=== PATIENT | female | born 1990 | race African-American/Black ===

== ENCOUNTER 2016-04-30 11:40 | Emergency (ER) | payer MEDICAID ==
[2014-05-17 05:52] VITALS: BMI 41.8
[~2016-04-30 11:40] MED LIST: FERROUS SULFAT325 MG PO; IBUPROFEN600 MG PO; PERCOCET 5-3251 TAB PO; PRENATAL COMPLE1 TAB PO
[2016-04-30 12:23] LABS: BASOPHILS 0 % (0.0-2.0); EOSINOPHILS 3.2 % (0-7); HEMATOCRIT 36.5 % (36.0-48.0); HEMOGLOBIN 11.7 g/dL (12-16); IMMATURE GRANULOCYTES 0.2 % (0-5); LYMPHOCYTES 30.4 % (15-50); MCH 24.2 pg (26.0-34.0); MCHC 32.1 g/dL (31.0-37.0); MCV 75.4 fL (80.0-100.0); MEAN PLATELET VOLUME 9.3 fL (7.4-10.4); MONOCYTES 11.3 % (2-11); NEUTROPHILS 54.9 % (40-80); RBC 4.84 10x6/uL (4.00-5.40); RDW 15.9 % (11.5-14.5)
[2016-04-30 12:33] LABS: ALKALINE PHOSPHATASE 57 U/L (46-116); ALT (SGPT) 24 U/L (10-68); CALC OSMOLALITY 271 mosm/kg (275-300); CALCIUM 9.3 mg/dL (8.5-10.1); CARBON DIOXIDE 25.4 mmol/L (21.0-32.0); CHLORIDE - SERUM 103 mmol/L (98-107); CREATININE - SERUM 0.7 mg/dL (0.6-1.3); GLUCOSE 100 mg/dL (74-106); PLATELET COUNT 300 10x3/uL (130-400); POTASSIUM - SERUM 3.5 mmol/L (3.5-5.1); PROTEIN - SERUM 7.3 g/dL (6.4-8.2); SODIUM 137 mmol/L (136-145); UREA NITROGEN 7 mg/dL (7-18); eGFR NON AFRICAN AMERICAN > 90 mL/min (90-120)
[2016-04-30 12:34] LABS: APPEARANCE CLEAR (CLEAR); BILIRUBIN NEGATIVE (NEGATIVE); COLOR DK YELLOW (YELLOW); GLUCOSE NEGATIVE (NEGATIVE); KETONE LARGE mg/dL (NEGATIVE); LEUKOCYTE ESTERASE NEGATIVE (NEGATIVE); NITRITE NEGATIVE (NEGATIVE); PROTEIN NEGATIVE (NEGATIVE); SPECIFIC GRAVITY 1.025 (1.005-1.020); UROBILINOGEN NORMAL (NORMAL)
[2016-04-30 12:55] LABS: HCG - QUANTITATIVE (MATERNAL) 193183 mIU/mL
== END 2016-04-30 13:36 | disposition home or self-care (01) ==
LOC: D.ER 11:40
PROVIDERS: Emergency Medicine
DX: R11.10 Vomiting, unspecified (principal); D64.9 Anemia, unspecified

== ENCOUNTER → 2016-09-17 08:17 | Outpatient (CLI) | payer MEDICAID ==
[2014-05-17 05:52] VITALS: BMI 41.8
== END | disposition home or self-care (01) ==
LOC: D.US 08:17
DX: O21.9 Vomiting of pregnancy, unspecified (principal); Z3A.30 30 weeks gestation of pregnancy; R63.4 Abnormal weight loss

== ENCOUNTER → 2016-11-21 12:04 | Outpatient (CLI) | payer MEDICAID ==
[2014-05-17 05:52] VITALS: BMI 41.8
[2016-11-21 13:14] LABS: APPEARANCE CLOUDY (CLEAR); BILIRUBIN NEGATIVE (NEGATIVE); COLOR YELLOW (YELLOW); GLUCOSE NEGATIVE (NEGATIVE); KETONE NEGATIVE (NEGATIVE); LEUKOCYTE ESTERASE TRACE (NEGATIVE); NITRITE NEGATIVE (NEGATIVE); PROTEIN NEGATIVE (NEGATIVE); SPECIFIC GRAVITY 1.015 (1.005-1.020); UROBILINOGEN NORMAL (NORMAL)
[2016-11-21 13:18] LABS: BACTERIA MODERATE /hpf (NONE SEEN); CALCIUM OXALATE CRYSTALS 0-5 /hpf (NONE SEEN); MUCUS <1+ /lpf (NONE SEEN); RED CELLS - URINE 0-5 /hpf (0-5); WHITE CELLS - URINE 0-5 /hpf (0-5)
== END | disposition home or self-care (01) ==
LOC: D.LDO 12:04
PROVIDERS: Obstetrics & Gynecology
DX: O46.93 Antepartum hemorrhage, unspecified, third trimester (principal); Z3A.39 39 weeks gestation of pregnancy

== ENCOUNTER → 2016-11-23 15:49 | Outpatient (CLI) | payer MEDICAID ==
[2014-05-17 05:52] VITALS: BMI 41.8
== END | disposition home or self-care (01) ==
LOC: D.LDO 15:49
DX: Z34.83 Encounter for supervision of other normal pregnancy, third trimester (principal); Z3A.40 40 weeks gestation of pregnancy

== ENCOUNTER 2016-11-25 05:00 | Inpatient (IN) | payer MEDICAID ==
[2016-11-25] VITALS (8 sets, daily range): BP systolic 105–132; BP diastolic 56–82; Ht 162.6 cm; Wt 115.2 kg
[~2016-11-25] VITALS: Ht 162.6 cm; Wt 115.2 kg
[2016-11-25 05:50] LABS: HEMATOCRIT 32.8 % (36.0-48.0); HEMOGLOBIN 10.4 g/dL (12-16); MCH 24.1 pg (26.0-34.0); MCHC 31.7 g/dL (31.0-37.0); MCV 76.1 fL (80.0-100.0); RBC 4.31 10x6/uL (4.00-5.40); RDW 14.4 % (11.5-14.5); WBC 5.4 10x3/uL (4.8-10.8)
--- NOTE | 2016-11-25 06:01 | NUR ---
RN TO PT BS FOR ROUNDS. PT RESTING IN BED IN LEFT LATERAL POSITION, WITH EYES CLOSED, IN NO ACUTE DISTRESS. RESPIRATIONS EVEN AND UNLABORED. BED IN LOW POSITION, SIDE RAILS UP TIMES 2, CALL LIGHT AND PHONE IN REACH. FRIEND REMAINS AT PT BS FOR SUPPORT AND ASSISTANCE. WILL CONT TO MONITOR PT STATUS.
[2016-11-25 06:07] LABS: APPEARANCE HAZY (CLEAR); BILIRUBIN NEGATIVE (NEGATIVE); COLOR YELLOW (YELLOW); GLUCOSE NEGATIVE (NEGATIVE); KETONE NEGATIVE (NEGATIVE); LEUKOCYTE ESTERASE TRACE (NEGATIVE); NITRITE NEGATIVE (NEGATIVE); PROTEIN NEGATIVE (NEGATIVE); SPECIFIC GRAVITY 1.015 (1.005-1.020); UROBILINOGEN NORMAL (NORMAL)
[2016-11-25 06:08] LABS: BACTERIA MANY /hpf (NONE SEEN); RED CELLS - URINE 0-5 /hpf (0-5); WHITE CELLS - URINE 0-5 /hpf (0-5)
--- NOTE | 2016-11-25 10:41 | NUR ---
BABY BORN AT 1040
--- NOTE | 2016-11-25 10:44 | NUR ---
NO COUNTS WERE DONE DUE TO CASE BEING CLASSIFIED STAT C SECTION
--- NOTE | 2016-11-25 12:01 | NUR ---
FUNDUS FIRM, MIDLINE AT THE UMBILICUS. LOCIA RUBRA MODERATE. REYNA PAD IN PLACE.
--- NOTE | 2016-11-25 12:17 | NUR ---
RECEIVED FROM RECOVERY ROOM. ALERT BUT FEELING DROWSY. IV PITOCIN INFUSING IN LEFT FOREARM. U/2 FIRM MIDLINE. RUBRA SMALL WITH SMALL CLOT EXPRESSED WITH GENTLE MASSAGE. VS OBTAINED. ATTEMPTED ORAL AND AXILLARY TEMPS. ORAL DID NOT REGISTER. AXILLARY 94.0. TEMPORAL DONE PER EXAMINING OFFICER AT 97.6. SIDE RAILS UP X 2. DENIES FEELING PAIN. UNABLE TO MOVE LOWER EXTREMETIES. O2 ON AT [address] AND PUMP IS ON. FOB IN ROOM. STABLE IN NURSERY. EMPTIED COLLINS OF 200 ML DARK ORANGE TINT URINE.
--- NOTE | 2016-11-25 12:25 | NUR ---
NEW IV BAG NS WITH 20 U PITOCIN HUNG AT 125 ML PER HR ON ALARIS PUMP.
--- NOTE | 2016-11-25 12:26 | NUR ---
ANESTHESIA WAS NOTIFIED OF PATIENTS CURRENT TEMPERATURE, ORDERS WERE RECEIVED FOR YOSEF ALEJANDRA BY LEATHER CLEANER.
--- NOTE | 2016-11-25 12:38 | NUR ---
YOSEF ALEJANDRA APPLIED BY INSTRUMENT CHECKER. SYED GARCIA CRNA IN ROOM/
--- NOTE | 2016-11-25 12:40 | NUR ---
PATIENTS TEMPERATURE DROPPED TO 96.7F ON HAND OFF. CONTACTED SYED GARCIA CRNA AND WAS GIVEN VERBAL ORDERS TO APPLY A RANCHO HUGGER.
--- NOTE | 2016-11-25 12:52 | NUR ---
ASSISTED TO SIT IN HIGHFOWLERS POSITION PER PT REQUEST. O2 SATS AT 99-100% O2 DC'D AT THIS TIME.
--- NOTE | 2016-11-25 13:15 | NUR ---
U/3 FIRM MIDLINE. RUBRA SMALL TO MOD. TEMP REGISTERED AT 97.3. ORAL SIPS OF WATER TAKEN. INSTRUCTED ON INCENTIVE SPIROMETER PERFORMED WITHOUT DIFF X 3. INSTRUCTED ON USE OF GEOLOGICAL SURVEY FIELD ASSISTANT. TO LET RN KNOW WHEN SHE STARTS FEELING DISCOMFORT OR PAIN. STATES "I JUST FEEL SLEEPY". DENIES PAIN. TOWEL COVERED ICE PACK IN PLACE ON LOWER ABDOMEN. SCD'S IN PLACE. VISITORS AT BEDSIDE. HOB LOWERED TO LOW FOWLERS PER PT REQUEST. SIDE RAILS UP X 2, CALL LIGHT IN REACH. INSTRUCTED PT SHE HAS CLEAR LIQUIDS ORDERED FOR DIET. ENCOURAGED TO TAKE FEW SIPS OF WATER TO START IN ORDER TO AVOID NAUSEA. VERBALIZED UNDERSTANDING.
--- NOTE | 2016-11-25 14:15 | NUR ---
TEMP 98.1 U/3 FIRM MIDLINE, RUBRA SMALL TO MOD. CLEAN REYNA-PADS X 2 PLACED. ASSISTED TO HIGH FOWLERS POSITION IN PREPARATION FOR HOLDING . DR LUNSFORD NOTIFIED OF CURRENT TEMP. ORDERS RECEIVED TO DC BEAR HUGGER. HUGGER WAS REMOVED. SIDE RAILS UP X 2, CALL LIGHT IN REACH. DENIES FEELING PAIN. ICE PACK PRESENT ON LOW ABDOMEN AND SCD'S IN PLACE. PLANS TO BREAST AND BOTTLE FEED.
--- NOTE | 2016-11-25 15:16 | NUR ---
SITTING UP IN BED. ASSISTED TO TILT TO RIGHT SIDE. INCENTIVE SPIROMETER X 3 USED. U/2 FIRM, RUBRA SMALL TO MOD. CLEAN PADS X 2 ON. INFANT AND FAMILY IN ROOM. REQUESTED JELLO. FRESH ICE PACK TO INCISION. EXTRA BLANKETS WERE REMOVED EARLIER. MOVING LOWER EXTREMETIES BUT UNABLE TO BEND A KNEES. SIDE RAILS UP X 2, CALL LIGHT IN REACH. TO CALL IF ANYTHING IS NEEDED.
--- NOTE | 2016-11-25 16:15 | NUR ---
U/3 FIRM MIDLINE, RUBRA SMALL. INFANT IN ARMS. VISITORS IN ROOM. DENIES NEEDING ANYTHING AT THIS TIME. TO CALL IF ANYTHING IS NEEDED.
--- NOTE | 2016-11-25 17:15 | NUR ---
SITTING UP IN BED. VS OBTAINED. PERICARE WITH WARM WASHCLOTH. CLEAN CHUX AND PADS ON. ASSISTED TO HIGH FOWLERS POSITION FOR CLEAR LIQUID DINNER. MOVES LE WITHOUT DIFFICULTY BUT SAYS SHE IS STILL NUMB AND CANNOT FEEL THE CATHETER. USING REGULATORY INTERN PRN FOR PAIN RELIEF. U/3 FIRM MIDLINE RUBRA SMALL. SIDE RAILS UP X2, CALL LIGHT IN REACH.
--- NOTE | 2016-11-25 18:18 | NUR ---
U/2 FIRM, AUDRA OCHOA. RATES PAIN 0/10. STATES "THAT MEDICINE MAKES ME SLEEPY". IN ROOM IN [facility]. VISITOR X 1 AT BEDSIDE. SIDE RAILS UP X 2, CALL LIGHT IN REACH. TO CALL IF ANYTHING IS NEEDED.
--- NOTE | 2016-11-25 19:30 | NUR ---
THIS RN TO BEDSIDE. PT AWAKE, BUT DROWZY. PAIN ASSESSED. PT REPORTS PAIN 0/10. SHIFT ASSESSMENT COMPLETED. SEE FLOWSHEET. PT PERFORMS I.S. X 3 ABLE TO PULL 2200. COUGHS W/POOR EFFORT, BUT IS COOPERATIVE. PERIPAD W/SMALL LOCHIA NOTED, BUT NO CHANGED AT THIS TIME DUE TO MULTIPLE GUESTS AT BESIDE. FRESH ICE CHIPS SERVED. APPROX 40ML URINE NOTED IN UROMETER. BED LOW,SIDE RAILS UP X 2. CALL LIGHT,PHONE AND LACE WEAVER BUTTON AT PT'S SIDE.
--- NOTE | 2016-11-25 20:00 | NUR ---
INFANT TRANSPORTED BACK TO PT'S ROOM VIA [facility]. ID BANDS VERIFIED PER PROTOCOL. INFANT PLACED IN PT'S ARMS. MULTPILE GUESTS REMAIN AT BEDSIDE.
--- NOTE | 2016-11-25 20:30 | NUR ---
ROUNDS MADE. PT HAS REPOSITIONED SELF UP IN BED W/ UP IN ARMS FOR FEEDING. PERIPAD CHANGED AT THIS TIME. APPROX 40ML URINE NOTED IN COLLINS UROMETER. NOTED TO BE HAVING DIFFICULTY DRINKING FROM ROUND NIPPLE. NUK NIPPLE PROVIDED. APPEARS TO BE DRINKING MORE EFFECTIVELY. PT DENIES NEEDS AT PRESENT.
--- NOTE | 2016-11-25 21:30 | NUR ---
ROUNDS MADE. PT AA&O X 4 IN LOW MATHIS'S. REPORTS PAIN 0/10. PERFORMS I.S. X 3. ABLE TO PULL 2200. PT REPOSITIONS SELF TO SITTING UP IN BED . APPROX 40ML URINE NOTED IN UROMETER. SMALL LOCHIA NOTED TO PERIPAD. PT DENIES NEEDS AT PRESENT. SIG OTHER AT BEDSIDE.
--- NOTE | 2016-11-25 22:15 | NUR ---
THIS RN TO BEDSIDE. DEMEROL COMPUTER ARTIST DISCONTINUED. IV SITE SALINE LOCKED. COLLINS CATH REMOVED INTACT W/ANOTHER 40ML URINE NOTED. PERICARE DONE. CLEAN PERIPAD PLACED. PT MEDICATED W/NORCO 10/325MG ONE. TEACHING PROVIDED. PT REPORTS PAIN 5/10 WITH MOVEMENT. FRESH ICE WATER SERVED AND A PACKAGE OF MARLENA CRACKERS SERVED. PT INSTRUCTED NOT TO GET OUT OF BED W/OUT CALLING OUT FOR ASSISTANCE. PT IS AGREEABLE. BILATERAL SCD WRAPS REMAIN IN PLACE. STILL CONNECTED TO PUMP. PUMP REMAINS ON.
--- NOTE | 2016-11-25 23:00 | NUR ---
ROUNDS MADE. PT SITTING UP IN BED W/INFANT UP IN ARMS FOR FEEDING. PT DENIES NEEDS AT PRESENT. REPORTS PAIN ONLY PRESENT WITH MOVEMENT. SIG OTHER REMAINS AT BEDSIDE.
--- NOTE | 2016-11-25 23:27 | OP ---
PATIENT NAME: ANGEL THOMAS MEDICAL RECORD: [id number] :92 LOCATION:[id number] ADMISSION DATE:11/25/16 SURGEON: REINA SILVESTRE MD DATE OF OPERATION: 11/25/2016 PREOPERATIVE DIAGNOSIS: Nonreassuring trace. POSTOPERATIVE DIAGNOSIS: Nonreassuring trace. PROCEDURE: Primary low transverse section. ANESTHESIA: Epidural. SURGEON: Reina Silvestre MD FINDINGS: A 6 pound 13 ounce male infant with 8 and 9 Apgars in cephalic presentation with tight nuchal cord. ESTIMATED BLOOD LOSS: 800 cc. COMPLICATIONS OF SURGERY: None. OPERATIVE NOTE: The patient was taken to the OR and under adequate epidural anesthesia, already on board. She was prepped and draped in the usual manner for abdominal procedures. A transverse incision was made in the lower abdomen and extended in a Pfannenstiel manner through subcutaneous tissue, fascia, dividing muscles in the midline. Peritoneum was then elevated and incised and this incision extended from the symphysis pubis to within 4 cm of the umbilicus, avoiding the bladder and abdominal organs. A transverse incision was then made in the lower uterine segment and infant was delivered through the uteroabdominal incision without difficulty from a cephalic presentation. A tight nuchal cord with poor matrix was found. The placenta was removed manually after suctioning and drying the . was taken to the nursery for further evaluation. The placenta was removed manually. The uterus was then closed in two layers, first layer running interlocking #1 chromic and second layer an imbricating #1 chromic. Pelvis was copiously irrigated and suctioned and hemostasis confirmed. The fascial layer was then closed in a running noninterlocking #1 PDS loop suture. Skin incision closed in 2 layers, first layer running noninterlocking 2-0 plain gut suture, followed by a subcuticular 2-0 plain gut suture. Dermabond was applied. A Steri-Strip dressing was applied and the patient went to the recovery area in good condition. It was assumed that sponge count was correct; however, in view of the lack of counts prior to opening the abdomen, an x-ray was obtained to confirm no lost laps. TRANSINT:[id number] Voice Confirmation ID: [id number] DOCUMENT ID: [id number] REINA SILVESTRE MD at 2327 CC: [id number] DICTATION DATE: 11/25/16 1159 LOAN CLERK: 11/25/16 1557 ADM IN [place] [id number] [place] [address]
--- NOTE | 2016-11-26 00:37 | NUR ---
ROUNDS MADE. PT LYING AWAKE IN BED W/INFANT UP IN ARMS. PT'S PAIN AND NEEDS ASSESSED. PT REPORTS PAIN 0/10 UNTIL SHE MOVES. DENIES NEEDS AT THIS TIME. BED LOW,CALL LIGHT AND PHONE AT PT'S SIDE. SCD WRAPS REMAIN ON BILATERALLY.STILL CONNECTED TO PUMP. PUMP IS ON AND FUNCTIONING. SIG OTHER REMAINS AT BEDSIDE.
--- NOTE | 2016-11-26 02:00 | NUR ---
ROUNDS MADE. PT LYING AWAKE IN BED. PT QUESTIONED IF SHE FEELS THE URGE TO VOID YET. PT REPORTS SHE DOES. SCD WRAPS REMOVED. PT TO SITTING ON SIDE OF BED PER SELF. AFTER SEVERAL MINUTES. PT CONTINUES TO DENY FEELING DIZZY. PT TO STANDING AT SIDE OF BED. STILL DENIES DIZZINESS. PT AMBULATES W/OUT ASSISTANCE TO BR. ABLE TO VOID 200ML URINE IN NUNS CAP. WARM WASH CLOTHS PROVIDED FOR PT TO PERFORM SELF PERICARE. CLEAN PADS AND PANTIES PROVIDED. CLEAN CHUX PLACED ON BED. PT AMBULATES BACK TO BED W/OUT ASSISTACNCE. PAIN ASSESED. PT DENIES PAIN W/AMBULATING, BUT NOW C/O ABLE CRAMPING AND INCISIONAL PAIN THAT SHE RATES 5/10.
--- NOTE | 2016-11-26 02:15 | NUR ---
PT MEDICATED W/NORCO 10/325MG ONE TAB AND MOTRIN 600MG PO. FRESH ICE WATER SERVED. BLANKET AND PILLOW PROVIDED FOR SIG OTHER. PT DENIES FURTHER NEEDS AT THIS TIME. SCD WRAPS PLACED BACK ON PT BILATERALLY. CONNECTED TO PUMP. PUMP IS ON AND FUNCTIONING. PT INSTRUCTED THAT 2 MORE VOIDS WILL NEED TO BE RECORDED. PT INSTRUCTED TO CALL OUT IF SHE NEEDS ASSISTANCE W/GETTING OUT OF OR BACK IN BED. PT VERBALIZES UNDERSTANDING. BED LOW, SIDE RAILS UPX 2. CALL LIGHT AND PHONE AT PT'S SIDE.
--- NOTE | 2016-11-26 02:50 | NUR ---
PT WAKENED TO INFORM HER THAT INFANT IS BEING TRANSPORTED BACK TO [facility] AT THIS TIME PER [facility] NURSES REQUEST. PT DENIES PAIN OR NEEDS AT PRESENT.
--- NOTE | 2016-11-26 04:00 | NUR ---
ROUNDS MADE. PT RESTING QUIETLY IN LOW MATHIS'S WITH EYES CLOSED. RESP EVEN AND UNLABORED. PT LEFT UNDISTURBED AT THIS TIME TO ALLOW FOR REST.
--- NOTE | 2016-11-26 06:09 | NUR ---
ROUNDS MADE. PT RESTING WITH EYES CLOSED IN LOW MATHIS'S. RESP EVEN AND AUDIBLE. PT LEFT UNDISTURBED AT THIS TIME.
[2016-11-26 06:13] LABS: RAPID PLASMA REAGIN Non Reactive (Non Reactive)
[2016-11-26 06:29] LABS: HEMATOCRIT 28.1 % (36.0-48.0); HEMOGLOBIN 8.9 g/dL (12-16); MCH 24.3 pg (26.0-34.0); MCHC 31.7 g/dL (31.0-37.0); MCV 76.6 fL (80.0-100.0); MEAN PLATELET VOLUME 10.4 fL (7.4-10.4); RBC 3.67 10x6/uL (4.00-5.40); RDW 14.6 % (11.5-14.5)
[2016-11-26 06:41] LABS: WBC 8.5 10x3/uL (4.8-10.8)
--- NOTE | 2016-11-26 07:50 | NUR ---
DR. SILVESTRE IN ROOM SPEAKING WITH PT.
--- NOTE | 2016-11-26 09:15 | NUR ---
Bettye Sara 11/26/16 LE@ 8:15 O: Patient sleeping in room did not wake upon entering. Left handouts and note in room stating, "Hi, I came in the room while you were sleeping, I didn't want to wake you. I provided handouts on several different things that will help with . Please call me as needed, if you have any questions or need help with . Congratulations on your lashon new baby:. Stacey Stack, ALEX [phone], work cell. Stacey Stack, CLC
[2016-11-26 09:50] VITALS: BP 127/62
--- NOTE | 2016-11-26 10:15 | NUR ---
PT TAKES SHOWER AT THIS TIME.
--- NOTE | 2016-11-26 10:15 | NUR ---
PT REQUESTS TO GET UP TO THE BATHROOM, ASSISTED PT UP TO BR, AMB, GAIT STEADY AND SLOW. PT VOIDS 700 CC'S IN [place] HAT. PERICARE DONE WITH WARM WET WASHCLOTHS. PT REQUESTS TO TAKE A SHOWER. SL DC'D TO LEFT FOREARM, CATH INTACT. LINENS, PERIPADS/PANTIES, SHAMPOO PROVIDED FOR PT. PT STATES SHE WILL WEAR OWN CLOHTING. BED LINENS CHANGED.
--- NOTE | 2016-11-26 10:30 | NUR ---
PT BACK TO BED, INFANT REMAINS IN ROOM WITH FOB. SR UP X2, CALL LIGHT AND PHONE WITHIN REACH. PT DENIES OTHER NEEDS AT THIS TIME.
--- NOTE | 2016-11-26 11:45 | NUR ---
PT AMBULATORY IN HALLWAY. SMILING, PT REQUESTS PAIN MEDICATION. BACK TO ROOM, TO BED. SEE EMAR FOR MED ADM. FRESH MUG OF ICE WATER SERVED TO PT. SR UP X2, CALL LIGHT AND PHONE WITHIN REACH. PT DENIES OTHER NEEDS.
[2016-11-26 16:00] VITALS: BP 120/70
--- NOTE | 2016-11-26 16:00 | NUR ---
PT AMBULATORY IN ROOM, UP TO BR, VOIDS 400 CC'S IN [facility]. PERICARE DONE PER SELF. PT PLACES CLEAN PERIPAD OVER INCISION.
--- NOTE | 2016-11-26 16:00 | NUR ---
PT AMBULATORY IN HALLWAY AFTER GETTING UP TO THE BATHROOM. DENIES NEEDS AT THIS TIME.
--- NOTE | 2016-11-26 18:15 | NUR ---
TO PT'S ROOM FOR ROOM CHECK. PT IS SITTING UP IN THE BED, SMILING, DENIES NEEDS. HAS EATEN REGULAR SUPPER TRAY. SIG OTHER REQUESTS GUEST TRAY, ORDERED. INFANT IN ROOM IN [facility] AT THIS TIME. GIFT BOX PROVIDED FOR PT/SIG OTHER. PT DENIES NEEDS. PT HAS I/S ON BEDSIDE TABLE, STATES SHE IS USING THIS THROUGHOUT THE DAY. SR UP X 2, CALL LIGHT AND PHONE WITHIN REACH.
--- NOTE | 2016-11-26 19:05 | NUR ---
REPORT GIVEN TO 7 P SHIFT.
--- NOTE | 2016-11-26 19:15 | NUR ---
BEDSIDE REPORT REC'D FROM Radha DONNELLY RN. PT CURRRENTLY GETTING READY TO GET UP TO BR. PT INFORMED THAT THIS RN WILL RETURN TO ROOM FOR SHIFT ASSESSMENT. PT CURRENTLY DENIES PAIN OR NEEDS.
[2016-11-26 19:45] VITALS: BP 140/73
--- NOTE | 2016-11-26 19:45 | NUR ---
THIS RN TO BEDSIDE. PT AA&O X 4 LYING IN BED W/INFANT ON HER CHEST. INFANT REC'D PER FOB SO SHIFT ASSESSMENT MAY BE COMPLETED. BREATHSOUNDS CL/=, ABD SOFT,NON DISTENDED.BOWEL SOUNDS PRESENT X 4. PT REPORTS TOLERATING MEALS WELL AND PASSING FLATUS. FUNDUS FIRM,U/2. SMALL RUBRA NOTED. LOW TRANSVERSE INCISION C/D/I W/STERI STRIPS. PEDAL PULSES PRESENT X 2 BILATERALLY. NO EDEMA NOTED. PT CONTINUES TO RATE PAIN 0/10. DENIES NEEDS AT PRESENT EXCEPT REQUEST AN ADDITIONAL PILLOW. PILLOW PROVIDED. CONTINUED PM SHIFT POC DISCUSSED W/PT. PT VERBALIZES UNDERSTANDING AND IS AGREEABLE.
--- NOTE | 2016-11-26 20:45 | NUR ---
ROUNDS MADE. INFANT FUSSY, PT REPORTS SHE DOESN'T KNOW WHATS WRONG WITH HIM. PT QUESTIONED HOW LONG HE NURSED. PT REPORTS 15 MINS. PT ENCOURAED TO ATTEMPT TO NURSE HIM LONGER. PT DOES SO.INFANT LATCHES AND NURSING WELL. PT PAIN AND NEEDS ASSESSED. PT DENIES PAIN.RATES 0/10. REQUEST 2 CUPS OF OJ W/ICE. ITEMS SERVED. PT DENIES FURTHER NEEDS. FOB AT BEDSIDE. BED LOW, SIDE RAILS UP X 2. CALL LIGHT AND PHONE ATPT'S SIDE. DINNER TRAY REMOVED FROM ROOM.
--- NOTE | 2016-11-26 21:45 | NUR ---
ROUNDS MADE. PT LYING IN BED AWAKE W/INFANT LYING ON HER LAP. PT PLAYING A GAME ON HER PHONE. PAIN AND NEEDS ASSESSED. PT DENIES PAIN.DECLINES OFFERS OF PAIN MEDICATION. ACCEPTS OFFERS TO BRING HER SOMETHING TO EAT OR DRINK. FRESH OJ AND SANDWICH TRAY SERVED. NO FURTHER NEEDS VOICED AT THIS TIME.
--- NOTE | 2016-11-26 22:45 | NUR ---
ROUNDS MADE. PT LYING IN BED TALKING ON THE PHONE.PAUSES CONVERSATION SO THIS RN MAY SPEAK. PT QUESTIONED IF SHE HAS NEEDS OR PAIN. PT DENIES BOTH.
--- NOTE | 2016-11-27 01:00 | NUR ---
PT RINGS CALL LIGHT REQUESTING PAIN MEDICATION FOR INCISIONAL PAIN AND ABD CRAMPING. REQUEST BOTH MOTRIN AND NORCO. PT MEDICATED W/MOTRIN 600MG AND NORCO 10/325MG ONE TAB. FRESH ICE WATER SERVED. PT DENIES FURTHER NEEDS AT THIS TIME.
--- NOTE | 2016-11-27 01:41 | NUR ---
SIG OTHER TRANSPORTS VIA [facility] TO [facility]. TO NURSING STATION TO REQUEST THIS RN TO ROOM TO ASSIST PT W/PUTTING SCD WRAPS BACK ON. THIS RN TO BEDSIDE. SCD WRAPS PLACED ON PT BILATERALLY. WRAPS CONNECTED TO PUMP. PUMP TURNED ON AND FUNCTIONING. BOTH PT AND SPOUSE REPORT THEY ARE GOING TO SLEEP NOW. DENIES NEEDS. BED LOW,SIDE RAILS UP X 2. CALL LIGHT AND PHONE AT PT'S SIDE. PT RATES PAIN 0/10.
--- NOTE | 2016-11-27 03:07 | NUR ---
ROUNDS MADE. PT RESTING W/EYES CLOSED IN LOW MATHIS'S RESP EVEN AND AUDIBLE. PT LEFT UNDISTURBED AT THIS TIME.
--- NOTE | 2016-11-27 05:02 | NUR ---
ROUNDS MADE. PT REMAINS IN LOW MATHIS'S W/EYES CLOSED. RESP EVEN. SNORING HEARD. PT LEFT UNDISTURBED .
--- NOTE | 2016-11-27 06:30 | NUR ---
ROUNDS MADE. PT REMAINS IN LOW MATHIS'S W/EYES CLOSED. RESP EVEN AND AUDIBLE. PT LEFT UNDISTURBED.
--- NOTE | 2016-11-27 07:15 | NUR ---
ASSUME CARE OF THIS PATIENT. LIGHTS ON LOW. SLEEPING, AROUSED EASILY. WILL COMPLETE SHIFT ASSESSMENT WHEN FULLY AWAKE. DENIES NEEDING ANYTHING AT THIS TIME. VISITOR ASLEEP ON COUCH. SIDE RAILS UP X 2, CALL LIGHT IN REACH. INFANT IN NURSERY.
[2016-11-27 07:21] VITALS: BP 133/74
--- NOTE | 2016-11-27 07:21 | NUR ---
SHIFT ASSESSMENT COMPLETED. U/3 FIRM MIDLINE, LOCHIA SEROSA SMALL. WEARING SDC'S FOR COMFORT DURING NIGHT. DENIES PAIN OR NEEDING ANYTHING AT THIS TIME. DESIRES TDAP. NON-SMOKER. . FOB IN ROOM. TO ROOM BY NURSERY RN. REG BREAKFAST SERVED. SIDE RAILS UP X 2, CALL LIGHT IN REACH. ANTICIPATE DC HOME TODAY.
[2016-11-27 08:28] LABS: HEMATOCRIT 29.7 % (36.0-48.0); HEMOGLOBIN 9.1 g/dL (12-16); MCH 23.8 pg (26.0-34.0); MCHC 30.6 g/dL (31.0-37.0); MCV 77.5 fL (80.0-100.0); MEAN PLATELET VOLUME 9.7 fL (7.4-10.4); RBC 3.83 10x6/uL (4.00-5.40); RDW 14.6 % (11.5-14.5); WBC 8.4 10x3/uL (4.8-10.8)
--- NOTE | 2016-11-27 08:40 | NUR ---
SITTING UP IN BED WITH IN ARMS AND EATING BREAKFAST. DENIES NEEDING ANYTHING. HEMOGRAM RESULTS BACK, CALLED DR SILVESTRE TO GIVE HER RESULTS. ORDERS FOR DC HOME AND TO INSTRUCT PATIENT TO CONTINUE PNV DAILY AND IRON TWO TIMES A DAY.
[2016-11-27] MEDS ORDERED: IBUPROFEN600 MG PO (10:01)
[2016-11-27] MEDS ORDERED: PERCOCET 5-3251 TAB PO ×2 (10:01→13:08)
--- NOTE | 2016-11-27 10:45 | NUR ---
SITTING UP IN BED . DENIES NEEDING ANYTHING AT THIS TIME.
--- NOTE | 2016-11-27 10:54 | NUR ---
PT CALLED AFTER COMPLETED. C/O 10/19 INCISIONAL PAIN AND REQUEST MEDICATION. DISCUSSED PAIN MED OPTIONS. SELECTED NORCO 5 MG PO. NORCO 5 MG PO GIVEN. TDAP ALSO GIVEN IN RIGHT DELTOID WITHOUT DIFFICULTY. FOB AND IN ROOM. WAITING ON DC OF INFANT. NO ADDITONAL REQUESTS AT THIS TIME.
--- NOTE | 2016-11-27 11:40 | NUR ---
SITTING UP IN BED INFANT. SAYS HER PAIN IS "ZERO". MINILAB OPERATOR VISITED. WILL BE DC'D TODAY. NO REQUESTS AT THIS TIME. WILL DC AFTER LUNCH AND WHEN READY TO DC. TO CALL IF ANYTHING IS NEEDED. VISITOR X 1 IN ROOM.
--- NOTE | 2016-11-27 13:20 | NUR ---
DC TEACHING COMPLETED INCLUDING ROUTINE POST-OP C/S CARE, S&S INFECTION, PP DEPRESSION, BREATFEEDING AND CARE, CAR SAFETY, COMMUNITY RESOURCES, ANEMIA, MEDICATION ADMINISTRATION AND FU. NO SPECIFIC QUESTIONS AT THIS TIME. VERBAL AND WRITTEN FORMATION ALONG WITH PRESCRIPTIONS. WAITING ON DC.
--- NOTE | 2016-11-27 13:39 | NUR ---
AMBULATED TO DESK. SAYS INFANT HAS BEEN DC AND SHE IS READY TO GO HOME.
--- NOTE | 2016-11-27 13:55 | NUR ---
DC'D VIA WHEELCHAIR TO CAR. IN CARSEAT. FOB AND GRANDMOTHER PRESENT TO ASSIST. ALL BELONGINGS REMOVED FROM ROOM. HAS WRITTEN PRESCRIPTIONS AND INSTRUCTIONS. KNOW WHEN TO RTC.
== END 2016-11-27 13:55 | disposition home or self-care (01) | DRG 766 ==
LOC: D.SDCHOLD 05:00 → D.LD 05:02
PROVIDERS: ADMIT Obstetrics & Gynecology
PROC: 10D00Z1 Extraction of Products of Conception, Low, Open Approach (ICD-10-PCS; principal; 2016-11-25 10:00)
DX: O76 Abnormality in fetal heart rate and rhythm complicating labor and delivery (principal); Z3A.40 40 weeks gestation of pregnancy; Z37.0 Single live birth

== ENCOUNTER 2017-02-23 18:44 | Emergency (ER) | payer MEDICAID ==
[2016-11-25 05:15] VITALS: BMI 43.7
== END 2017-02-23 22:05 | disposition home or self-care (01) ==
LOC: D.ER 18:44
DX: J09.X2 Influenza due to identified novel influenza A virus with other respiratory manifestations (principal)